=== PATIENT | female | born 1985 | race Two or more races ===

== ENCOUNTER 2023-07-06 08:05 | Emergency (ER) | payer BC, OTHER ==
[~2023-07-06] VITALS: Ht 165.1 cm; Wt 68.1 kg
[2023-07-06 12:29] VITALS: TEMP 98
[2023-07-06] MEDS: MORPHINE SULFATE INJ 2 MG/ml SYRG IM ONE (12:29)
[2023-07-06 12:30] VITALS: PULSE 90; RESP 20; O2SAT 98
[2023-07-06 13:00] VITALS: BP 120/75; PULSE 95; RESP 20
[2023-07-06] MEDS ORDERED: NAP500T PO (14:01)
[2023-07-06] MEDS ORDERED: CYCL-837 PO (14:01)
== END 2023-07-06 14:25 | disposition home or self-care (01) ==
LOC: EDBD 08:05 → ER 08:05
DX: M54.50 Low back pain, unspecified (principal); M25.552 Pain in left hip; W01.0XXA Fall on same level from slipping, tripping and stumbling without subsequent striking against object, initial encounter; Y93.01 Activity, walking, marching and hiking; Y92.89 Other specified places as the place of occurrence of the external cause; Y99.8 Other external cause status
CPT/HCPCS: 72100; 73502; 96372; 99284; J2270

== ENCOUNTER 2023-08-29 21:13 | Emergency (ER) | payer BC, OTHER ==
[~2023-08-29] VITALS: Ht 167.6 cm; Wt 72.0 kg
[~2023-08-29 21:13] MED LIST: CYCL-837 PO; NAP500T PO
[2023-08-29] MEDS: ACETAMINOPHEN 325 MG TAB PO ONE (21:59)
[2023-08-29 22:00] VITALS: BP 119/65; PULSE 104; RESP 20; TEMP 99.1; O2SAT 96
[2023-08-30] MEDS: KETOROLAC TROMETH 30 MG/ML 1ML VIAL IM ONE (00:31)
[2023-08-30] MEDS: BENZOCAINE (DENTAL) 20 % SPRAY 60ML MT ONE (00:31)
== END 2023-08-30 00:50 | disposition home or self-care (01) ==
LOC: ER 21:13
DX: K08.89 Other specified disorders of teeth and supporting structures (principal)
CPT/HCPCS: 96372; 99283; J1885

== ENCOUNTER 2024-07-15 04:00 | Emergency (ER) | payer BC, OTHER ==
[~2024-07-15] VITALS: Ht 167.6 cm; Wt 72.7 kg
--- NOTE | 2024-07-15 04:22 | ED.PDOC ---
HPI Comments 39-year-old female came to ER for chest pains. Patient denies any medical problems. States about an hour prior to arrival, she was cleaning/cooking, when she developed sudden onset substernal chest pains, aching, constant, radiating to her left shoulder and left arm, associated with nausea. Denies any prior history of similar chest pains. Chief Complaint: Chest Pain Time Seen by MD: 04:22 Primary Care Provider: UNKNOWN Reviewed Notes: Nurses Notes Allergies: Coded Allergies: NO KNOWN ALLERGIES (Unverified , 07/06/23) Home Meds Active Scripts Naproxen (NAPROSYN TABLET) 500 Mg Tb, 1 TAB PO BIDPC for 30 Days, #60 TAB 0 Refills Prov:LUCRECIA KIRKLAND FISHING VESSEL MATE 07/06/23 Cyclobenzaprine Hcl (Cyclobenzaprine Hcl) 5 Mg Tab, 1 TAB PO QPM for 30 Days, #30 TAB 0 Refills Prov:LUCRECIA KIRKLAND FISHING VESSEL MATE 07/06/23 Information Source: Patient Mode of Arrival: Ambulatory Severity: Moderate Timing: Hours Duration: Since onset Prehospital treatment: None Location: Substernal Radiation: Shoulder (L), Arm (L) Quality: Aching Onset: With Light Exertion Cardiac Risk Factors: None PE Risk Factors: None History of: None Associated Signs and Symptoms: N/V Past Medical History PAST MEDICAL HISTORY: Denies Surgical History: BTL GLOBAL CMO History: No Pertinent GLOBAL CMO History Family History Family History: Reviewed,noncontributory to illness Social History Smoker: Non-Smoker Alcohol: Denies ETOH Use Drugs: Denies Drug Use Lives In: Home Constitutional: denies: chills, diaphoresis, fatigue, fever, malaise, sweats, weakness, others EENTM: denies: blurred vision, double vision, ear bleeding, ear discharge, ear drainage, ear pain, ear ringing, eye pain, eye redness, hearing loss, mouth pain, mouth swelling, nasal discharge, nose bleeding, nose congestion, nose pain, photophobia, tearing, throat pain, throat swelling, voice changes, others Respiratory: denies: cough, hemoptysis, orthopnea, SOB at rest, shortness of breath, SOB with excertion, stridor, wheezing, others Cardiovascular: reports: chest pain, left arm pain; denies: dizzy spells, diaphoresis, Dyspnea on exertion, edema, irregular heart beat, lightheadedness, palpitations, PND, syncope, others Gastrointestinal: reports: nausea; denies: abdomen distended, abdominal pain, blood streaked bowels, constipated, diarrhea, dysphagia, difficulty swallowing, hematemesis, melena, poor appetite, poor fluid intake, rectal bleeding, rectal pain, vomiting, others Genitourinary: denies: abnormal vagina bleeding, burning, dyspareunia, dysuria, flank pain, frequency, hematuria, incontinence, pain, , vagina disc harge, urgency, others Neurological: denies: dizziness, fainting, headache, left sided numbness, left sided weakness, numbness, paresthesia, pre-existing deficit, right sided numbness, right sided weakness, seizure, speech problems, tingling, tremors, weakness, others Musculoskeletal: denies: back pain, gout, joint pain, joint swelling, muscle pain, muscle stiffness, neck pain, others Integumetry: denies: bruises, change in color, change in hair/nails, dryness, laceration, lesions, lumps, rash, wounds, others Allergic/Immunocompromised: denies: Difficulty Healing, Frequent Infections, Hives, Itching, others Hematologic/Lymphatic: denies: anemia, blood clots, easy bleeding, easy bruising, swollen glands, others Endocrine: denies: excessive hunger, excessive sweating, excessive thirst, excessive urination, flushing, intolerance to cold, intolerance to heat, unexplained weight gain, unexplained weight loss, others Psychiatric: denies: anxiety, bipolar disorder, depression, hopeless, panic disorder, schizophrenia, sleepless, suicidal, others Physical Exam General Appearance: No Apparent Distress, Normal HEENT: Normal ENT Inspection, Pharynx Normal, TMs Normal Neck: Full Range of Motion, Non-Tender, Normal, Normal Inspection Respiratory: Chest Non-Tender, Lungs Clear, No Accessory Muscle Use, No Respiratory Distress, Normal Breath Sounds Cardiovascular: No Edema, No JVD, No Murmur, No Gallop, Normal Peripheral Pulses, Regular Rate/Rhythm Breast Exam: Deferred Gastrointestinal: No Organomegaly, Non Tender, No Pulsatile Mass, Normal Bowel Sounds, Soft Genitalia: Deferred Pelvic: Deferred Rectal: Deferred Extremities: No calf tenderness, Normal capillary refill, Normal inspection, Normal range of motion, Non-tender, No pedal edema Musculoskeletal : Apperance: Normal Neurologic: Alert, counselor manager II-XII nml as Tested, No Motor Deficits, Normal Affect, Normal Mood, No Sensory Deficits Cerebellar Function: Normal Reflexes: Normal Skin: Dry, Normal Color, Warm Lymphatic: No Adenopathy EKG EKG : Pulse Rate (adult): 97 Cardiac Rhythm: NSR Was a procedure done? Was a procedure done?: No CP Differential Dx Differential Diagnosis: Angina, Anxiety / Panic Attack, Hyperventilation Differential Diagnosis: Angina, Chest Wall Pain, Costochondritis, Esophageal reflux/spasm, Gastritis, Myocardial Infarction X-Ray, Labs, Meds, VS Vital Signs Date Time Temp Pulse Resp B/P (MAP) Pulse Ox O2 Delivery O2 Flow Rate FiO2 07/15/24 04:22 97 07/15/24 04:11 98.2 87 18 117/60 (79) 99 98.2 07/15/24 04:07 97 Lab Test 07/15/24 05:08 07/15/24 04:11 Range/Units Troponin I High Sensitivity < 3 L < 3 L </=34 ng/L White Blood Count 12.6 H 4.4-10.8 10^3/uL Red Blood Count 4.48 4.0-5.20 10^6/uL Hemoglobin 13.3 12.2-16.2 g/dL Hematocrit 39.6 36.0-46.0 % Mean Corpuscular Volume 88.2 80.0-100.0 fL Mean Corpuscular Hemoglobin 29.6 28.0-32.0 pg Mean Corpuscular Hemoglobin Concent 33.5 32.0-36.0 g/dL Red Cell Distribution Width 14.2 11.8-14.3 % Platelet Count 334 140-450 10^3/uL Mean Platelet Volume 7.6 6.9-10.8 fL Neutrophils (%) (Auto) 67.1 37.0-80.0 % Lymphocytes (%) (Auto) 24.0 10.0-50.0 % Monocytes (%) (Auto) 6.1 0.0-12.0 % Eosinophils (%) (Auto) 2.3 0.0-7.0 % Basophils (%) (Auto) 0.5 0.0-2.0 % Neutrophils # (Auto) 8.5 1.6-8.6 10 ^3/uL Lymphocytes # (Auto) 3.0 0.4-5.4 10 ^3/uL Monocytes # (Auto) 0.8 0-1.3 10 ^3/uL Eosinophils # (Auto) 0.3 0-0.8 10 ^3/uL Basophils # (Auto) 0.1 0-0.2 10 ^3/uL Nucleated Red Blood Cells 0.0 % Sodium Level 138 136-145 mmol/L Potassium Level 3.5 3.5-5.1 mmol/L Chloride Level 108 H 98-107 mmol/L Carbon Dioxide Level 21 20-31 mmol/L Anion Gap 9 5-15 Blood Urea Nitrogen 16 9-23 mg/dL Creatinine 0.73 0.550-1.02 mg/dL Glomerular Filtration Rate Calc 107 >90 mL/min BUN/Creatinine Ratio 21.9 H 10.0-20.0 Serum Glucose 114 H 74-106 mg/dL Calcium Level 9.9 8.7-10.4 mg/dL Time of 1ST Reevaluation: 04:15 Reevaluation 1ST: Unchanged Patient Education/Counseling: Diagnosis, Treatment Family Education/Counseling: No Family Present Departure 1 Departure Time of Disposition: 05:12 (Patient presented with chest pain that was concerning for possible STEMI, ACS, PE, Pneumonia, Muscle Strain, COPD, Dissection. Data: 1. I ordered and reviewed the result of at least 3 labs including a CBC, BMP, and Troponin. 2. I independently interpreted the following tests: EKG which shows normal sinus rhythm and Chest X-ray which shows a benign chest.Risk:This patient presented with a high risk of morbidity due to further diagnostic testing or treatment and may suffer from an acute cardiac or respiratory disorder. After review of all the data patient is unlikely to have a pe , dissection, and is low risk for acs. Patient is stable at this time.Workup so far is benign and patient will be discharged with outpatient followup. ) Impression: Primary Impression: Acute chest pain Disposition: 01 HOME / SELF CARE / HOMELESS Condition: Stable Additional Instructions: You presented today with chest pain. Your workup today was benign including labs, troponin, EKG, chest x-ray. Your pain may be from musculoskeletal strain, acid reflux, anxiety, or many other factors. It is important to follow up with your regular doctor within 1 week. If your symptoms worsen or you have any other concerns please return to the emergency room. Discharged With: Self Critical Care Note Critical Care Time?: Yes (35 min-critical care time only) Critical care comment: Acute chest pains Authorized and Performed by: Diana Esquivel MD Total critical care time: Approximately 39 minutes Due to a high probability of clinically significant, life threatening deterioration, the patient required my highest level of preparedness to intervene emergently and I personally spent this critical care time directly and personally managing the patient. This critical care time included obtaining a history; examining the patient; pulse oximetry; ordering and review of studies; arranging urgent treatment with development of a management plan; evaluation of patient's response to treatment; frequent reassessment; and, discussions with other providers. This critical care time was performed to assess and manage the high probability of imminent, life-threatening deterioration that could result in multi-organ failure. It was exclusive of separately billable procedures and treating other patients and teaching time. Please see my other sections and the rest of the note for further information on patient assessment and treatment. Stability Stability form required: No Heart Score Heart Score: Heart Score Response (Comments) Value History Slightly Suspicious 0 EKG Normal 0 Age <45 0 Risk Factors No known risk factors 0 Troponin Normal limit 0 Total 0 I personally scribed for DIANA ESQUIVEL MD ([email or web address]) on 07/15/24 at 04:22. Electronically submitted by Sivakumar Wilson ([facility] DIANA ESQUIVEL MD July 15, 2024 04:22
[2024-07-15 04:29] LABS: Basophils # (auto) 0.1 10 ^3/uL (0-0.2); Basophils % (auto) 0.5 % (0.0-2.0); Eosinophils # (auto) 0.3 10 ^3/uL (0-0.8); Eosinophils % (auto) 2.3 % (0.0-7.0); Hematocrit 39.6 % (36.0-46.0); Hemoglobin 13.3 g/dL (12.2-16.2); Mean Corpuscular Hemoglobin 29.6 pg (28.0-32.0); Mean Corpuscular Hgb Conc. 33.5 g/dL (32.0-36.0); Mean Corpuscular Volume 88.2 fL (80.0-100.0); Monocytes # (auto) 0.8 10 ^3/uL (0-1.3); Monocytes % (auto) 6.1 % (0.0-12.0); Neutrophils # (auto) 8.5 10 ^3/uL (1.6-8.6); Neutrophils % (auto) 67.1 % (37.0-80.0); Platelet Count (auto) 334 10^3/uL (140-450); Red Blood Cells 4.48 10^6/uL (4.0-5.20); Red Cell Distribution Width 14.2 % (11.8-14.3); White Blood Cell 12.6 10^3/uL (4.4-10.8)
[2024-07-15 04:44] LABS: Sodium 138 mmol/L (136-145)
[2024-07-15 04:45] LABS: Anion Gap 9 (5-15); Carbon Dioxide 21 mmol/L (20-31)
[2024-07-15 04:46] LABS: Calcium 9.9 mg/dL (8.7-10.4)
[2024-07-15 04:50] LABS: BUN/Creatinine Ratio 21.9 (10.0-20.0); Blood Urea Nitrogen 16 mg/dL (9-23)
--- NOTE | 2024-07-15 04:58 | DVH ---
CHEST RADIOGRAPH Indication: chest pain Technique: Single frontal view of the chest was obtained COMPARISON: None FINDINGS: Lines and Tubes: None Lungs: Clear Pleura: No effusion. No pneumothorax. Cardiomediastinal contours: Unremarkable Bones: Unremarkable IMPRESSION: No acute disease.
[2024-07-15 05:07] LABS: Chloride 108 mmol/L (98-107); Glucose 114 mg/dL (74-106); Potassium 3.5 mmol/L (3.5-5.1)
[2024-07-15] MEDS: MAALOX PLUS or MAALOX 30 ML PO ONE (06:51)
[2024-07-15] MEDS: ONDANSETRON ODT 4 MG TAB PO ONE (06:52)
[2024-07-15] MEDS: ACETAMINOPHEN 325 MG TAB PO ONE (06:52)
[2024-07-15] MEDS: FAMOTIDINE 20 MG TAB PO ONE (06:52)
--- NOTE | 2024-07-15 06:56 | ECG ---
[facility] Test Date: 2024-07-15 Test Time: 04:07:50 Pat Name: ALICE CONTE Department: ER Room: Gender: F Land Checker: BRANDON : 1985 Requested By: EMERGENCY EMERGENCY Order Number: [id number] Reading MD: Darnell Montalvo Measurements Intervals [place] Rate: 97 P: 48 [place]: 160 QRS: 77 QRSD: 102 T: 6 QT: 383 QTc: 487 Interpretive Statements Sinus rhythm Borderline T wave abnormalities Borderline prolonged QT interval Electronically Signed On 07-15-2024 9:23:36 PDT by Darnell Montalvo Please click the below link to view image of tracing.
--- NOTE | 2024-07-15 06:56 | ECG ---
[facility] Test Date: 2024-07-15 Test Time: 05:06:41 Pat Name: ALICE CONTE Department: ER Room: Gender: F Printer'S Assistant: BRANDON : 1985 Requested By: EMERGENCY EMERGENCY Order Number: [id number] Reading MD: Darnell Montalvo Measurements Intervals [place] Rate: 82 P: 45 [place]: 152 QRS: 85 QRSD: 103 T: 34 QT: 386 QTc: 451 Interpretive Statements Sinus rhythm Electronically Signed On 07-15-2024 9:23:38 PDT by Darnell Montalvo Please click the below link to view image of tracing.
[2024-07-15 06:57] VITALS: PULSE 94; RESP 16; O2SAT 96
[2024-07-15 06:58] VITALS: BP 107/70; PULSE 94; RESP 16; TEMP 97.8; O2SAT 96
== END 2024-07-15 06:58 | disposition home or self-care (01) ==
LOC: ER 04:03
DX: R07.89 Other chest pain (principal); R11.0 Nausea; Z98.51 Tubal ligation status
CPT/HCPCS: 36415; 71045; 80048; 84484; 85025; 93005; 99285; Q0162